=== PATIENT | male | born 1980 | race Caucasian/White ===

== ENCOUNTER 2024-11-20 10:42 | Emergency (ER) | payer OTHER, SELFPAY ==
[2024-11-20 10:53] VITALS: BP 134/80; PULSE 95; RESP 17; TEMP 36.6; O2SAT 95; BMI 33.9
--- NOTE | 2024-11-20 11:36 | ED_ITS ---
HPI - Skin/Abscess/Foreign Bdy <Rain Yung PA-C - Last Filed: 11/20/24 12:16> General Chief complaint: Skin/Abscess/Foreign Body Stated complaint: Lump over right eye and neck Time Seen by Provider: 11/20/24 11:19 Source: patient Mode of arrival: Ambulatory History of Present Illness HPI narrative: Mr. Rice is a very pleasant 44-year-old male with a past medical history of hypertension, ZHENG who presents to the emergency department for right-sided forehead rash x3 days and right-sided neck nodule x 1 day. Patient states about 3 days ago he noticed some red bumps on the right side of his forhead that looked somewhat like pimples, however on his right eyebrow he started to have burning pain and some scabbing. Yesterday he also noticed some swelling on the right side of his neck and was concerned that it might be a thyroid nodule. He denies any flu-like symptoms, visual disturbance, eye pain, ear pain, nasal pain, sore throat. No one in the family has similar lesions. He does admit to having chickenpox as a child and feeling more stressed recently, no history of shingles or similar rash. Related Data Home Medications Medication Instructions Recorded Confirmed HYDROCHLOROTHIAZIDE PO 04/08/21 06/30/22 lifitegrast 5 % eye drops in a drp EYE-BOTH 04/08/21 06/30/22 dropperette (Xiidra) wellbutrin PO DAILY 05/04/22 06/30/22 Previous Rx's Medication Instructions Recorded valacyclovir 1 gram tablet 1,000 mg PO TID 7 days #21 tabs 11/20/24 Allergies Allergy/AdvReac Type Severity Reaction Status Date / Time Sulfa (Sulfonamide Allergy SWELLING Verified 11/20/24 10:55 Antibiotics) Review of Systems <Rain Yung PA-C - Last Filed: 11/20/24 12:16> Review of Systems ROS Unobtainable: All systems reviewed & are unremarkable except as noted in HPI and below Patient History <Rain Yung PA-C - Last Filed: 11/20/24 12:16> Medical History Obstructive sleep apnea of adult Social History Smoking Status: Unknown if ever smoked Smoking Status: Unknown if ever smoked Exam <Rain Yung PA-C - Last Filed: 11/20/24 12:16> Narrative Exam Narrative: GENERAL: 44 year old patient appears stated age. Well-developed patient, in no acute distress. HEAD: Atraumatic. Normocephalic. On the right side of the forehead, there is a sparse maculopapular rash and in the right eyebrow there is some scabbed lesions. No generalized erythema or increased warmth of the right side of the forehead. No involvement of the nose, ear or right eye. EYES: PERRL. Extraocular motions intact. No scleral icterus. No injection or drainage. No visual disturbance. ENT: Normal TMs and ear canals bilaterally. Nose without bleeding, purulent drainage. Throat without erythema, tonsillar hypertrophy or exudate. Airway patent. NECK: Trachea midline. Cervical ROM intact. Palpable right-sided cervical lymphadenopathy. No tenderness to palpation or palpable thyroid nodule. CARDIOVASCULAR: Regular rate RESPIRATORY: Nonlabored respirations. Speaking in clear, full sentences. NEURO: AOx3. Clear speech. Moves all 4 extremities appropriately. SKIN: Right-sided forehead rash described above. Initial Vital Signs Initial Vital Signs: Vital Signs Temperature 98 F 11/20/24 10:53 Pulse Rate 95 H 11/20/24 10:53 Respiratory Rate 17 11/20/24 10:53 Blood Pressure 134/80 11/20/24 10:53 Pulse Oximetry 95 11/20/24 10:53 Oxygen Delivery Method Room Air 11/20/24 10:53 <Tejas Gracia MD - Last Filed: 11/21/24 09:45> Initial Vital Signs Initial Vital Signs: Vital Signs Temperature 98 F 11/20/24 10:53 Pulse Rate 95 H 11/20/24 10:53 Respiratory Rate 17 11/20/24 10:53 Blood Pressure 134/80 11/20/24 10:53 Pulse Oximetry 95 11/20/24 10:53 Oxygen Delivery Method Room Air 11/20/24 10:53 Course <Rain Yung PA-C - Last Filed: 11/20/24 12:16> Orders Ordered: Discontinued Medications Valacyclovir HCl (Valacyclovir 500 Mg Tablet) 1,000 mg PO NOW ONE Stop: 11/20/24 12:02 Last Admin: 11/20/24 12:07 Dose: 1,000 mg Documented By: SB Vital Signs Vital signs: Vital Signs - 8 hr 11/20/24 10:53 Temperature 98 F Pulse Rate 95 H Respiratory Rate 17 Blood Pressure 134/80 Pulse Oximetry 95 Oxygen Delivery Method Room Air <Tejas Gracia MD - Last Filed: 11/21/24 09:45> Orders Ordered: Discontinued Medications Valacyclovir HCl (Valacyclovir 500 Mg Tablet) 1,000 mg PO NOW ONE Stop: 11/20/24 12:02 Last Admin: 11/20/24 12:07 Dose: 1,000 mg Documented By: NAOMI Vital Signs Vital signs: Vital Signs - 8 hr 11/20/24 10:53 Temperature 98 F Pulse Rate 95 H Respiratory Rate 17 Blood Pressure 134/80 Pulse Oximetry 95 Oxygen Delivery Method Room Air MDM - Skin/Abscess/Foreign Bdy <Rain Yung PA-C - Last Filed: 11/20/24 12:16> Medical Records Attestation: I reviewed the patient's medical records. Medical records narrative: Prior neurology visits most recent 06/30/2022 for excessive daytime sleepiness. MDM Narrative Medical decision making narrative: 44-year-old male with a past medical history of hypertension, ZHENG who presents to the emergency department for right-sided forehead rash x3 days and right- sided neck nodule x 1 day. Differential diagnosis includes but is not limited to acute herpes zoster /s hingles, cellulitis, abscess, impetigo, lymphadenopathy, thyroid nodule, etc. On exam the patient is in no acute distress, nontoxic appearing, vital signs appropriate. He has a mild maculopapular rash on the right side of the forehead with some scabbing lesions in the right eyebrow. With the patient's consent, I did share pictures with the attending physician. patient has no visual disturbance or eye pain, no lesions affecting the nose or the ear concerning for Tori Cummings syndrome or herpes zoster ophthalmicus at this time. The unilateral distribution of the patient's rash, I am most concerned for shingles at this time however it is also possible that it could be a mild skin infection. We will proceed with treatment of shingles with valacyclovir 1 g t.i.d. x7 days. Advised ibuprofen and acetaminophen for pain, topical bacitracin, prompt skin recheck with PCP. Discussed diagnosis of shingles and had a prevent the spread. Discussed strict ED return precautions. Patient verbalized understanding of all information and is agreeable to the plan, 1st dose of medication given in the ED, he is stable for discharge home. <Tejas Gracia MD - Last Filed: 11/21/24 09:45> [facility] Narrative Medical decision making narrative: 44-year-old male with a past medical history of hypertension, ZHENG who presents to the emergency department for right-sided forehead rash x3 days and right- sided neck nodule x 1 day. Differential diagnosis includes but is not limited to acute herpes zoster /shingles, cellulitis, abscess, impetigo, lymphadenopathy, thyroid nodule, etc. On exam the patient is in no acute distress, nontoxic appearing, vital signs appropriate. He has a mild maculopapular rash on the right side of the forehead with some scabbing lesions in the right eyebrow. With the patient's consent, I did share pictures with the attending physician. patient has no visual disturbance or eye pain, no lesions affecting the nose or the ear concerning for [place] Cummings syndrome or herpes zoster ophthalmicus at this time. The unilateral distribution of the patient's rash, I am most concerned for shingles at this time however it is also possible that it could be a mild skin infection. We will proceed with treatment of shingles with valacyclovir 1 g t.i.d. x7 days. Advised ibuprofen and acetaminophen for pain, topical bacitracin, prompt skin recheck with PCP. Discussed diagnosis of shingles and had a prevent the spread. Discussed strict ED return precautions. Patient verbalized understanding of all information and is agreeable to the plan, 1st dose of medication given in the ED, he is stable for discharge home. Physician attestation: I was readily available for consultation at all times. I agree with assessment and plan of care. Tejas Gracia MD Discharge Plan Departure Patient Disposition: Home Clinical Impression: Facial rash Instructions: DI for Shingles Activity Restrictions/Additional Instructions: Dear Valentina Rice, Thank you for coming to the emergency department. Today you were evaluated for a right-sided facial rash and swelling of the right side of your neck. At this time I believe your symptoms may be due to early shingles infection with some reactive lymph nodes in the right side of the neck. You have been prescribed antiviral medication to take 3 times a day for the next 7 days, I would also like you to apply topical antibiotic ointment to the lesions such as bacitracin -- please wash your hands both before and after applying ointment or use a Q- tip. Shingles virus is contagious until all blisters have crusted over. This typically take 7-10 days. The virus that causes shingles can be spread to people who have not had chickenpox or not have the chickenpox vaccine. The rash can take up to 4 weeks to completely heal. Please take Ibuprofen (Motrin/Advil) or Acetaminophen (Tylenol) for pain. These are available over the counter. You may take Ibuprofen 600 mg every 8 hours with food for pain. You may also take Acetaminophen 650 mg every 4-6 hours for pain. Do not exceed 3000 mg of Tylenol a day as this can cause liver damage. Do not drink alcohol with either of these medications. Please follow up with your primary care doctor for a skin recheck as soon as possible. Return to the emergency department if you develop any new or worsening symptoms, fevers, chills, changes in vision, or other concerns. Please follow up with your primary care doctor within the next 2-3 days for ER follow-up. (If you do not have a PCP you can call [phone]. to schedule an appointment with an [facility] Primary Care Provider) IF YOU DEVELOP ANY NEW OR WORSENING SYMPTOMS, RETURN TO THE ER! Please read the attached instructions, they highlight more specific treatments and interventions for you at home. Thank you for letting me participate in your care, Rain Yung PA-C Prescriptions: New valacyclovir 1 gram tablet 1,000 mg PO TID 7 Days Qty: 21 0RF No Action HYDROCHLOROTHIAZIDE PO Xiidra 5 % dropperette EYE-BOTH wellbutrin PO DAILY Referrals: ProviderCésar [Primary Care Provider] - Stand Alone Forms: Patient Portal/API/Survey, Work Release Note
[2024-11-20] MEDS: valACYclovir 500 MG TABLET 1000 MG PO (12:07)
== END 2024-11-20 12:11 | disposition home or self-care (01) ==
PROVIDERS: Emergency Provider Physician Assistant
DX: R21 Rash and other nonspecific skin eruption (principal)
CPT/HCPCS: 99283